=== PATIENT | male | born 1960 | race Caucasian/White ===

== ENCOUNTER 2016-11-28 14:50 | Inpatient (IN) | payer OTHER ==
[2016-11-28] VITALS (8 sets, daily range): BP systolic 101–134; BP diastolic 53–91
[~2016-11-28] VITALS: Ht 180.3 cm; Wt 113.5 kg
[2016-11-28] MEDS ORDERED: IODIXANOL 320MG/ML 100ML BTL IV ONE (15:11)
[2016-11-28] MEDS ORDERED: LIDOCAINE 2%HCL (LOCAL ANESTH.) INJ 20ML MDV ONE (15:11)
[2016-11-28] MEDS ORDERED: MORPHINE SULF INJ 2 MG/ML SYRINGE 1ML IV ONE (15:15)
[2016-11-28] MEDS ORDERED: METOPROLOL TARTRATE 1MG/1ML-5ML VIAL IV ONE (15:15)
[2016-11-28] MEDS ORDERED: MORPHINE SULF INJ 2 MG/ML SYRINGE 1ML IV PRN ×2 (15:15→17:15)
[2016-11-28] MEDS ORDERED: ASPirin 81 mg TAB PO ONE (15:15)
[2016-11-28] MEDS ORDERED: HEPARIN IN NS 1000U/500ML (2UNIT/ML) 500 ML BAG IV ONE (15:15)
[2016-11-28] MEDS ORDERED: HEPARIN SODIUM (PORCINE) 5000 UNITS/ML 1ML VIAL IV ONE (15:30)
[2016-11-28] MEDS ORDERED: SODIUM CHL 0.9% 50 ML ONE (15:34)
[2016-11-28] MEDS ORDERED: ANGIOMAX 250 MG VIAL IV ONE (15:34)
[2016-11-28] MEDS ORDERED: MIDAZOLAM HCL 1MG/1ML-2 ML VIAL ONE (15:34)
[2016-11-28] MEDS ORDERED: fentaNYL CITRATE 100 MCG/2 ML VL ONE (15:34)
[2016-11-28] MEDS ORDERED: EPTIFIBATIDE INJ (2MG/ML) 10ML VIAL IV ONE (15:35)
[2016-11-28 15:44] LABS: Basophils # (auto) 0.1 uL; Basophils % (auto) 0.4 % (0.0-2.0); Eosinophils # (auto) 0.1 uL; Eosinophils % (auto) 0.7 % (0.0-7.0); Hematocrit 51.9 % (41.0-53.0); Hemoglobin 16.5 g/dL (13.5-17.5); Lymphocytes # (auto) 1.9 uL; Lymphocytes % (auto) 12.2 % (10.0-50.0); Mean Corpuscular Hemoglobin 30.2 pg (28.0-32.0); Mean Corpuscular Hgb Conc. 31.8 g/dL (32.0-36.0); Mean Corpuscular Volume 95.1 fL (80.0-100.0); Mean Platelet Volume 7.2 fL (6.9-10.8); Monocytes # (auto) 1.2 uL; Monocytes % (auto) 7.3 % (0.0-12.0); Neutrophils # (auto) 12.6 uL; Neutrophils % (auto) 79.4 % (37.0-80.0); Nucleated Red Blood Cells % 0.1 %; Platelet Count (auto) 256 10^3/uL (140-450); Red Cell Distribution Width 14.5 % (11.8-14.3); White Blood Cell 15.9 10^3/uL (4.4-10.8)
[2016-11-28 16:00] LABS: Partial Thromboplastin Time 24.4 sec (22.64-33.71); Prothrombin Time 10.9 sec (9.37-12.3)
[2016-11-28] MEDS ORDERED: TICAGRELOR 90 MG TAB ONE (16:06)
[2016-11-28] MEDS ORDERED: ASPirin 325 MG TAB ONE (16:07)
[2016-11-28 16:20] LABS: Magnesium 1.9 mg/dL (1.6-2.6)
[2016-11-28] MEDS ORDERED: HYDROcodone-ACET 10/325MG TAB ONE (16:35)
[2016-11-28] MEDS ORDERED: NITROGLYCERIN 0.4 MG SL TAB SL PRN (17:15)
[2016-11-28] MEDS ORDERED: DEXTROSE (50%) 50ML SYRG IV PRN (17:15)
[2016-11-28] MEDS ORDERED: LIRA18IN2 SUBCUT (18:56)
[2016-11-28] MEDS ORDERED: LISI10TA6 PO (18:56)
[2016-11-28] MEDS ORDERED: SIMV-13 PO (18:56)
[2016-11-28] MEDS ORDERED: METF-370 PO (18:56)
[2016-11-28 21:24] LABS: BUN/Creatinine Ratio 14.3; Calcium 8.1 mg/dL (8.5-10.1); Potassium 4.4 mmol/L (3.5-5.1)
[2016-11-28 21:25] LABS: Albumin 3.4 g/dL (3.4-5.0); Bilirubin, Total 0.6 mg/dL (0.2-1.0); Total Protein 6.9 g/dL (6.4-8.2)
[2016-11-28] MEDS ORDERED: ACCU-CHEK COMFORT CURVE STRIP VI SCH (22:00)
[2016-11-28] MEDS: ATORVASTATIN 20 MG TAB PO SCH (22:18)
[2016-11-28] MEDS: FAMOTIDINE 20 MG TAB PO SCH (22:19)
[2016-11-28] MEDS: InsuLIN REG 1unit/0.01ml Soln (100units/ml) SC SCH (22:19)
[2016-11-28] MEDS: ACCU-CHEK COMFORT CURVE STRIP VI SCH (22:20)
[2016-11-28] MEDS: TICAGRELOR 90 MG TAB PO SCH (23:55)
[2016-11-29] MEDS: SODIUM CHLORIDE 0.9% 1,000 ML IV SCH ×4 (01:51→23:15)
[2016-11-29 04:30] VITALS: BP 132/80
[2016-11-29] MEDS: HYDROcodone-ACET 10/325MG TAB PO PRN ×2 (05:56→20:48)
[2016-11-29] MEDS: ACCU-CHEK COMFORT CURVE STRIP VI SCH ×4 (06:34→22:27)
[2016-11-29] MEDS: InsuLIN REG 1unit/0.01ml Soln (100units/ml) SC SCH ×4 (06:34→22:27)
[2016-11-29 06:38] LABS: Basophils # (auto) 0 uL; Basophils % (auto) 0.2 % (0.0-2.0); Eosinophils # (auto) 0.1 uL; Eosinophils % (auto) 0.7 % (0.0-7.0); Hematocrit 43.4 % (41.0-53.0); Hemoglobin 14.5 g/dL (13.5-17.5); Lymphocytes % (auto) 8.7 % (10.0-50.0); Mean Corpuscular Hemoglobin 31.1 pg (28.0-32.0); Mean Corpuscular Hgb Conc. 33.5 g/dL (32.0-36.0); Mean Corpuscular Volume 92.8 fL (80.0-100.0); Mean Platelet Volume 7.6 fL (6.9-10.8); Monocytes # (auto) 1.3 uL; Monocytes % (auto) 12.4 % (0.0-12.0); Neutrophils # (auto) 8.5 uL; Platelet Count (auto) 220 10^3/uL (140-450); White Blood Cell 10.9 10^3/uL (4.4-10.8)
[2016-11-29 07:02] LABS: BUN/Creatinine Ratio 11.5; Calcium 8.5 mg/dL (8.5-10.1); Potassium 4.2 mmol/L (3.5-5.1)
[2016-11-29 09:00] VITALS: BP 126/84
[2016-11-29] MEDS: FAMOTIDINE 20 MG TAB PO SCH ×2 (10:12→22:26)
[2016-11-29] MEDS: ASPirin 81 mg TAB PO SCH (10:12)
[2016-11-29] MEDS: TICAGRELOR 90 MG TAB PO SCH ×2 (10:55→22:26)
[2016-11-29 13:00] VITALS: BP 121/74
[2016-11-29 17:00] VITALS: BP 119/82
[2016-11-29 20:00] VITALS: BP 107/69
[2016-11-29 22:00] VITALS: BP 107/69
[2016-11-29] MEDS: ATORVASTATIN 20 MG TAB PO SCH (22:26)
[2016-11-30 04:33] VITALS: BP 105/67
[2016-11-30] MEDS: ACCU-CHEK COMFORT CURVE STRIP VI SCH ×4 (06:07→21:44)
[2016-11-30] MEDS: InsuLIN REG 1unit/0.01ml Soln (100units/ml) SC SCH ×4 (06:16→21:45)
[2016-11-30 09:00] VITALS: BP 98/70
[2016-11-30] MEDS: TICAGRELOR 90 MG TAB PO SCH ×2 (11:09→21:44)
[2016-11-30] MEDS: FAMOTIDINE 20 MG TAB PO SCH ×2 (11:09→21:44)
[2016-11-30] MEDS: ASPirin 81 mg TAB PO SCH (11:09)
[2016-11-30] MEDS: SODIUM CHLORIDE 0.9% 1,000 ML IV SCH (11:10)
[2016-11-30 13:00] VITALS: BP 120/88
[2016-11-30 17:00] VITALS: BP 100/78
[2016-11-30] MEDS: ATORVASTATIN 20 MG TAB PO SCH (21:44)
[2016-11-30 22:00] VITALS: BP 111/71
[2016-12-01 05:15] VITALS: BP 110/65
[2016-12-01] MEDS: InsuLIN REG 1unit/0.01ml Soln (100units/ml) SC SCH ×4 (07:00→22:11)
[2016-12-01] MEDS: ACCU-CHEK COMFORT CURVE STRIP VI SCH ×4 (07:00→22:03)
[2016-12-01 08:14] VITALS: BP 133/66
[2016-12-01] MEDS ORDERED: IOHEXOL 350 MG/ML 100ML IJ ONE ×2 (09:21→12:09)
[2016-12-01] MEDS ORDERED: LIDOCAINE 2%HCL (LOCAL ANESTH.) INJ 20ML MDV ONE ×2 (09:21→11:51)
[2016-12-01] MEDS: ASPirin 81 mg TAB PO SCH (09:30)
[2016-12-01] MEDS: TICAGRELOR 90 MG TAB PO SCH ×2 (09:30→22:35)
[2016-12-01] MEDS: FAMOTIDINE 20 MG TAB PO SCH ×2 (09:30→22:03)
[2016-12-01] MEDS ORDERED: MIDAZOLAM HCL 1MG/1ML-2 ML VIAL ONE (09:56)
[2016-12-01] MEDS ORDERED: ANGIOMAX 250 MG VIAL IV ONE (09:57)
[2016-12-01] MEDS ORDERED: fentaNYL CITRATE 100 MCG/2 ML VL ONE (09:57)
[2016-12-01] MEDS ORDERED: SODIUM CHL 0.9% 50 ML ONE (09:57)
[2016-12-01] MEDS: HYDROcodone-ACET 10/325MG TAB PO PRN (14:09)
[2016-12-01] MEDS: SODIUM CHLORIDE 0.9% 1,000 ML IV SCH ×2 (14:45→22:45)
[2016-12-01 16:48] VITALS: BP 100/55
[2016-12-01] MEDS ORDERED: TEMAZEPAM 15 MG CAP PO PRN (18:00)
[2016-12-01 22:00] VITALS: BP 115/73
[2016-12-01] MEDS: ATORVASTATIN 20 MG TAB PO SCH (22:03)
[2016-12-02 05:00] VITALS: BP 98/55
[2016-12-02] MEDS: ACCU-CHEK COMFORT CURVE STRIP VI SCH (06:13)
[2016-12-02] MEDS: InsuLIN REG 1unit/0.01ml Soln (100units/ml) SC SCH (06:14)
[2016-12-02 09:00] VITALS: BP 129/94
[2016-12-02] MEDS: FAMOTIDINE 20 MG TAB PO SCH (09:57)
[2016-12-02] MEDS: ASPirin 81 mg TAB PO SCH (09:57)
[2016-12-02] MEDS: TICAGRELOR 90 MG TAB PO SCH (09:57)
[2016-12-02 11:43] VITALS: BP 129/94
== END 2016-12-02 13:00 | disposition home or self-care (01) | DRG 246 ==
LOC: ER 14:56 → CATH 14:57 → TELE-CENTR 14:58
PROVIDERS: ADMIT Specialist; ATTEND Specialist
PROC: 4A023N7 Measurement of Cardiac Sampling and Pressure, Left Heart, Percutaneous Approach (ICD-10-PCS; principal; 2016-11-28)
PROC: 027034Z Dilation of Coronary Artery, One Artery with Drug-eluting Intraluminal Device, Percutaneous Approach (ICD-10-PCS; 2016-11-28)
PROC: 02C03ZZ Extirpation of Matter from Coronary Artery, One Artery, Percutaneous Approach (ICD-10-PCS; 2016-11-28)
PROC: B2111ZZ Fluoroscopy of Multiple Coronary Arteries using Low Osmolar Contrast (ICD-10-PCS; 2016-11-28)
PROC: B2151ZZ Fluoroscopy of Left Heart using Low Osmolar Contrast (ICD-10-PCS; 2016-11-28)
PROC: B41F1ZZ Fluoroscopy of Right Lower Extremity Arteries using Low Osmolar Contrast (ICD-10-PCS; 2016-11-28)
PROC: 02703ZZ Dilation of Coronary Artery, One Artery, Percutaneous Approach (ICD-10-PCS; 2016-12-01)
PROC: B41G1ZZ Fluoroscopy of Left Lower Extremity Arteries using Low Osmolar Contrast (ICD-10-PCS; 2016-12-01)
DX: I21.19 ST elevation (STEMI) myocardial infarction involving other coronary artery of inferior wall (principal); R65.11 Systemic inflammatory response syndrome (SIRS) of non-infectious origin with acute organ dysfunction; E11.9 Type 2 diabetes mellitus without complications; E66.01 Morbid (severe) obesity due to excess calories; Z68.34 Body mass index [BMI] 34.0-34.9, adult; E78.00 Pure hypercholesterolemia, unspecified; E78.5 Hyperlipidemia, unspecified; I10 Essential (primary) hypertension; I25.10 Atherosclerotic heart disease of native coronary artery without angina pectoris
CPT/HCPCS: 36415; 71010; 80048; 80053; 82962; 83036; 83735; 84484; 85025; 85610; 85730; 86850; 86900; 86901; 92920; 92943; 92973; 93005; 93458; 94761; 96374; 96375; 99152; 99153; C1874; J1815; J2250; Q9967